=== PATIENT | female | born 1980 | race Caucasian/White ===

== ENCOUNTER 2020-08-09 15:29 | Emergency (ER) | payer OTHER ==
[~2020-08-09 15:29] MED LIST: Iopamidol 370 76% 100 ML VIAL ONE
[2020-08-09 16:17] LABS: #Basophils 0.1 thou/uL (0.0-0.2); #Eosinphils 0.1 thou/uL (0.0-0.7); #Lymphocytes 1.5 thou/uL (1.20-3.40); #Monocytes 0.7 thou/uL (0.11-0.59); #Neutrophils 11.1 thou/uL (1.40-6.50); %Basophils 0.7 % (0.0-1.0); %Eosinophils 0.8 % (0.0-10.0); %Lymphocytes 11.2 % (21.0-51.0); %Monocytes 4.9 % (0.0-10.0); %Neutrophils 82.5 % (42.0-75.0); Mean Corpuscular HGB CONC 30.9 g/dL (32.0-36.0); Mean Corpuscular Hemoglobin 26.3 pg (27.0-31.0); Mean Corpuscular Volume 85.4 fL (78.0-98.0); Mean Platelet Volume 7.5 fL (7.4-10.4); Platelet Count 248 thou/uL (130-400); RBC Distribution Width 12.4 % (11.5-14.5); White Blood Cell (WBC) Count 13.5 thou/uL (4.8-10.8)
[2020-08-09 16:33] LABS: ALT (SGPT) 16 U/L (8-55); AST (SGOT) 22 U/L (5-34); Albumin 4.2 g/dL (3.5-5.0); Alkaline Phosphatase 75 U/L (40-110); Anion Gap 17 mmol/L (10-20); BUN (Urea Nitrogen) 13 mg/dL (7.0-18.7); CK (CPK) 187 U/L (29-168); Calc. Creatinine Clearance 0 mL/min (70-130); Calcium 9.6 mg/dL (7.8-10.44); Carbon Dioxide 22 mmol/L (22-29); Chloride 105 mmol/L (98-107); Estimated GFR-MDRD 49; Globulin 3.3 g/dL (2.4-3.5); Glucose 106 mg/dL (70-105); Potassium 3.8 mmol/L (3.5-5.1); Protein, Total 7.5 g/dL (6.0-8.3); Sodium 140 mmol/L (136-145)
--- NOTE | 2020-08-09 18:33 | CT ---
CT ANGIO OF THE CHEST: Date: 08-09-[address] of the chest was performed for evaluation of chest pain with an elevated D-Dimer. Scans wer e obtained after a bolus of IV contrast then multiplanar reconstructions and MIP images were done. FINDINGS: This is a moderate sensitivity study for embolus. No defects were seen to suggest pulmonary emboli. E mboli in the middle to more distal branches might be missed. The heart size is borderline. There is n o sign of pericardial effusion. No mediastinal mass or adenopathy was seen. The lungs are clear. No infiltrate, effusion, or nodule was seen. The visible portions of the upper a bdomen showed no acute findings, however, there was an ovoid soft tissue density seen in the left upp er abdomen measuring 3.6 cm in size. It is immediately adjacent to the left adrenal gland and may juan josé se from it. Its CT density numbers are generally in the 20s. See comments below. IMPRESSION: 1. Intermediate sensitivity study showing no evidence of pulmonary embolism in the larger to middle s ize pulmonary artery branches. No evidence of aortic or mediastinal issues. Lungs are clear. 2. 3.6 cm ovoid soft tissue mass in the left upper abdomen that is either immediately adjacent to, or arising from, the left adrenal gland. I would assume a left adrenal mass until proven otherwise. Its density seems different from the spleen which is also adjacent to it. An elective CT using an adrena l mass protocol with and without contrast is recommended for further evaluation. Findings called to [facility] in ER at 1853 on 08-09-2020. POS: HOME
[2020-08-09 19:06] LABS: Troponin I 0.017 ng/mL (< 0.028)
== END 2020-08-09 19:25 | disposition home or self-care (01) ==
LOC: BURERS 15:29
DX: R55 Syncope and collapse (principal); I10 Essential (primary) hypertension; E03.9 Hypothyroidism, unspecified; Z79.899 Other long term (current) drug therapy
CPT/HCPCS: 36415; 71275; 80053; 82550; 83880; 84484; 85025; 85379; 93005; Q9967